=== PATIENT | female | born 1995 | race Caucasian/White ===

== ENCOUNTER 2019-11-14 21:45 | Emergency (ER) | payer BC, SELFPAY ==
[2019-11-14 21:52] VITALS: BP 126/88; PULSE 79; RESP 16; TEMP 36.7; O2SAT 99
--- NOTE | 2019-11-14 22:20 | ED.GENADUL_ITS ---
Discharge Plan Disposition Patient Disposition: HOME Condition: Stable Discharge Details Clinical Impression: Rupture of cyst of right ovary Primary Care Provider: [facility] Provider: Zaynab Haji Home Meds and New Rx's Prescriptions: New oxycodone-acetaminophen [Percocet] 5-325 mg tablet 1 tab PO TID PRN (Reason: pain) 3 Days Qty: 7 RF: 0 ondansetron HCl [Zofran] 4 mg tablet 4 mg PO Q8H PRN (Reason: nausea and vomiting) 3 Days Qty: 7 RF: 0 No Action dextroamphetamine 10 mg Tablet 10 mg PO DAILY RF: 0 Discharge Instructions Instructions: Ovarian Cyst (ED) Additional Instructions: Follow up with primary care provider in 3-5 days. Return to ED sooner if any worsening or concerns. Increase oral fluids. Please take Tylenol or Ibuprofen with food every 4-6 hours as needed for pain and swelling. Take medications as directed for nausea and pain if needed. Return to the ED for any worsening pain, feeling worse at any time. Follow-up [facility] on Sunday as discussed. Referrals: [facility] [OTHER] - Jayla Martinez DO [OSTEOPATHIC DOCTOR] - Medical Decision Making 24-year-old female presents to the ER with right lower quadrant abdominal pain which began tonight she reports this came on suddenly. Associated with nausea no vomiting no diarrhea. She is very tender upon palpation, positive iliopsoas sign, positive obturator sign. She is tender over McBurney's point. She reports her last known menstrual period was 2 weeks ago. Denies any vaginal discharge or bleeding denies any history of abdominal surgeries. She is from [place] and just drove in today. [id number]: Spoke with Dr. Martinez with [facility] who recommends DC home with pain control and follow up with her on Sunday in clinic, barring any unstable labs or patient remaining hemodynamically stable. PROCEDURE INFORMATION: Exam: CT Abdomen And Pelvis With Contrast Exam date and time: 11/14/2019 10:20 PM Age: 24 years old Clinical indication: Abdominal pain; Localized; Right lower quadrant (rlq); Patient HX: Rlq pain xfew hours TECHNIQUE: Imaging protocol: Computed tomography of the abdomen and pelvis with intravenous contrast. Radiation optimization: All CT scans at this facility use at least one of these dose optimization techniques: automated exposure control; mA and/or kV adjustment per patient size (includes targeted exams where dose is matched to clinical indication); or iterative reconstruction. Contrast material: [id number]; Contrast volume: 84 ml; Contrast route: INTRAVENOUS (IV); COMPARISON: No relevant prior studies available. FINDINGS: Liver: 7 mm low-density lesion within the left hepatic lobe. Gallbladder and bile ducts: Normal. No calcified stones. No ductal dilation. Pancreas: Normal. No ductal dilation. Spleen: Normal. No splenomegaly. Adrenals: Normal. No mass. Kidneys and ureters: Normal. No hydronephrosis. Stomach and bowel: Unremarkable. No obstruction. No mucosal thickening. Appendix: No evidence of appendicitis. Intraperitoneal space: High density pelvic free fluid suspicious for hemope ritoneum and raising the possibility of ruptured hemorrhagic ovarian cyst. Vasculature: Unremarkable. No abdominal aortic aneurysm. Lymph nodes: Unremarkable. No enlarged lymph nodes. Bladder: Unremarkable as visualized. Reproductive: 4.4 cm right ovarian cyst suggested. Bones/joints: Unremarkable. No acute fracture. Soft tissues: Unremarkable. IMPRESSION: 1. 4.4 cm right ovarian cyst suggested. 2. High density pelvic free fluid suspicious for hemoperitoneum and raising the possibility of ruptured hemorrhagic ovarian cyst. Discussed CT results with patient who verbalizes understanding. Discussed follow-up care and strict return instructions, verbalized understanding. Patient was given Percocet and Zofran to go home with instructed to follow-up with [facility] on Sunday. HPI General Mode of arrival: ambulatory . Date/Time Provider Initiated Documentation: 11/14/19 21:46 . Limitations to Documentation: no limitations . Information obtained by: patient . HPI Narrative: 24-year-old female presents to the ER with right lower quadrant abdominal pain which began tonight she reports this came on suddenly. Associated with nausea no vomiting no diarrhea. She is very tender upon palpation, positive iliopsoas sign, positive obturator sign. She is tender over McBurney's point. She reports her last known menstrual period was 2 weeks ago. Denies any vaginal discharge or bleeding denies any history of abdominal surgeries. She is from [place] and just drove in today. Related Data Home Medications Medication Instructions Recorded Confirmed dextroamphetamine 10 mg PO DAILY 11/14/19 11/14/19 ondansetron HCl [Zofran] 4 mg PO Q8H PRN 3 Days #7 tab 11/14/19 oxycodone-acetaminophen [Percocet] 1 tab PO TID PRN 3 Days #7 tab 11/14/19 Previous Rx's Medication Instructions Recorded ondansetron HCl [Zofran] 4 mg PO Q8H PRN 3 Days #7 tab 11/14/19 oxycodone-acetaminophen [Percocet] 1 tab PO TID PRN 3 Days #7 tab 11/14/19 Allergies Allergy/AdvReac Type Severity Reaction Status Date / Time No Known Allergies Allergy Unverified 11/14/19 21:56 General Stated Complaint: Abd Prob ANN: 3 Review of Systems Narrative: Constitutional: Negative for weight loss, alert and oriented, well groomed, normal body habitus, appears comfortable. HEENT: Denies trauma, headaches, blurry vision, nasal discharge, sore throat, trouble swallowing. Chest: Denies chest pain, palpitations, irregular rhythm, hypertension. Respiratory: Denies Shortness of breath, cough, hemoptysis. GI: Denies abdominal pain, nausea, vomiting, diarrhea, constipation. : Denies dysuria, hematuria, flank pain, rectal bleeding. Neuro: Denies dizziness, blurry vision, weakness, syncope, headache or facial numbness. Hematologic: Denies easy bruising, intolerance to heat or cold, hair loss. [facility] Social History Smoking/Tobacco Use Status: Current-Occasional Tobacco Type: e-cigarettes Alcohol Intake: current Alcohol Intake frequency: a few times a week Drug use: Occasionally Substance use type: marijuana Do you feel safe at home: Yes Do you feel safe in your relationship?: Yes Exam Narrative Exam Narrative: Constitutional: Alert and oriented x3. Appears stated age. Normal body habitus. Head: Normocephalic, no trauma. Eyes: Pupils PERRLA, Red reflex noted, EOM's intact. Eyelids symmetrical without lesions, discharge, or swelling. ENT: Bilateral TM's WNL, External ear normal to inspection, no mastoid TTP, sw elling, or erythema, Nasal turbinates WNL, no nasal discharge. Normal dentition, Posterior pharynx WNL, no exudate. Chest: RRR, Normal S1, S2, distal pulses intact. Resp: Lungs clear to auscultation bilaterally, no wheezes, rales, or rhonchi. Abdomen: Tender to palpation right lower quadrant. Positive guarding. Positive iliopsoas sign, positive obturator sign. Musculoskeletal: Normal gait, 5/5 strength to all four extremities. Skin: No suspicious rashes or lesions. Capillary refill less than 2 sec. Neurologic: Cranial nerves II-XII intact. Alert and oriented x 3. DTR's intact. Hematologic/Lymphatic: No ecchymosis, no lymphadenopathy. Course Vital Signs Vital signs: Vital Signs Temperature 36.7 C 11/14/19 21:52 Pulse 79 11/14/19 21:52 Respiratory Rate 16 11/14/19 21:52 Blood Pressure 126/88 11/14/19 21:52 Pulse Oximetry 99 11/14/19 21:52 Temperature 36.7 C 11/14/19 21:52 Temperature Source Skin 11/14/19 21:52 Pulse 79 11/14/19 21:52 Respiratory Rate 16 11/14/19 21:52 Respiratory Effort 11/14/19 21:59 Blood Pressure 126/88 11/14/19 21:52 Blood Pressure Position Sitting 11/14/19 21:52 Pulse Oximetry 99 11/14/19 21:52 Oxygen Delivery Method Room Air 11/14/19 21:52 Oxygen Flow Rate 0 11/14/19 21:52
[2019-11-14 22:21] LABS: Bilirubin Negative (Negative); Blood Negative (Negative); Clarity Clear (Clear); Glucose Negative (Negative); Ketones Trace mg/dL (Negative); Leukocyte Esterase Negative (Negative); Nitrite Negative (Negative); Specific Gravity 1.015 (1.005-1.025); Urobilinogen 0.2 EU/dL (Up TO 0.2); pH 6.5 (5-8)
[2019-11-14] MEDS: Ondansetron 4 MG/2 ML VIAL IVP (22:37)
[2019-11-14] MEDS: Normal Saline 1,000 ML 1000 ML IV (22:37)
[2019-11-14] MEDS: Normal Saline Flush 10 ML SYR IVP (22:40)
--- NOTE | 2019-11-14 22:48 | DI.CT_ITS ---
EXAM: CT ABDOMEN PELVIS W CLINICAL HISTORY: RLQ abd pain TECHNIQUE: Imaging Protocol: Axial computed tomography images with coronal and sagittal reformatted images were created and reviewed CONTRAST MATERIAL: Intravenous: Omnipaque 350 Contrast volume:84 mL Oral: No COMPARISON: No exams were available for comparison FINDINGS: ABDOMEN: Lung Bases: Normal where visualized. Liver: Normal density. There is a 0.7 cm hypodense lesion in the left lobe of the liver. It is too s mall for further characterization. Portal, Superior Mesenteric, and Splenic Veins: Unremarkable. Gallbladder and Biliary Tract: No radiodense calculus or dilation. Pancreas: Normal density, no abnormal calcifications or inflammatory process. Spleen: Normal. Adrenals: No masses seen. Kidneys: Normal size, contour and axis. No radiodense stones or obstructive uropathy. No masses seen. Note is made of a left retroaortic renal vein. Abdominal Aorta: Abdominal portion non-dilated. Bowel: No obstruction or bowel wall thickening. No evidence of acute appendicitis. Peritoneal Cavity: Small amount of pelvic, slightly hyperdense, fluid suggesting hemoperitoneum. Lymph Nodes: Within normal limits. Bones: Unremarkable. Soft Tissues: Unremarkable. PELVIS: Bladder: Incompletely distended but grossly unremarkable. Reproductive Organs: 4.3 cm right adnexal cyst which is likely ovarian. Lymph Nodes: Within normal limits. Bones: Within normal limits. IMPRESSION: 1. 4.3 cm right ovarian cyst. 2. High density free pelvic fluid suspicious for hemoperitoneum and raising the possibility of a rupt ured hemorrhagic ovarian cyst. RADIATION DOSE DELIVERED: 566.24mGy.cm Total DLP DATA REPOSITORY: All CT scans at this facility are submitted to the National Radiology Data Registry (NRDR) Dose Index Registry (DIR) with the [employer] (A[employer]). RADIATION OPTIMIZATION: All CT scans at this facility use at least one of these dose optimization te chniques: automated exposure control; mA and/or kV adjustment per patient size (includes targeted exa ms where dose is matched to clinical indication); or iterative reconstruction.
[2019-11-14] MEDS: Normal Saline - Diluent 50 ML VIAL IV (22:50)
[2019-11-14] MEDS: Omnipaque 350 MG/ML 100 ML BTL IJ (22:51)
--- NOTE | 2019-11-14 23:06 | DI.VRAD_ITS ---
Addendum created by Yuval Alves MD on 11/14/2019 11:10:25 PM EDT: THIS REPORT CONTAINS FINDINGS THAT MAY BE CRITICAL TO PATIENT CARE. The findings were discussed with Dr. blackman at 11:10 PM EDT on 11/14/2019. The findings were acknowledged and understood. Initial report created on 11/14/2019 11:05:38 PM EDT: PROCEDURE INFORMATION: Exam: CT Abdomen And Pelvis With Contrast Exam date and time: 11/14/2019 10:20 PM Age: 24 years old Clinical indication: Abdominal pain; Localized; Right lower quadrant (rlq); Patient HX: Rlq pain xfew hours TECHNIQUE: Imaging protocol: Computed tomography of the abdomen and pelvis with intravenous contrast. Radiation optimization: All CT scans at this facility use at least one of these dose optimization techniques: automated exposure control; mA and/or kV adjustment per patient size (includes targeted exams where dose is matched to clinical indication); or iterative reconstruction. Contrast material: [id number]; Contrast volume: 84 ml; Contrast route: INTRAVENOUS (IV); COMPARISON: No relevant prior studies available. FINDINGS: Liver: 7 mm low-density lesion within the left hepatic lobe. Gallbladder and bile ducts: Normal. No calcified stones. No ductal dilation. Pancreas: Normal. No ductal dilation. Spleen: Normal. No splenomegaly. Adrenals: Normal. No mass. Kidneys and ureters: Normal. No hydronephrosis. Stomach and bowel: Unremarkable. No obstruction. No mucosal thickening. Appendix: No evidence of appendicitis. Intraperitoneal space: High density pelvic free fluid suspicious for hemoperitoneum and raising the possibility of ruptured hemorrhagic ovarian cyst. Vasculature: Unremarkable. No abdominal aortic aneurysm. Lymph nodes: Unremarkable. No enlarged lymph nodes. Bladder: Unremarkable as visualized. Reproductive: 4.4 cm right ovarian cyst suggested. Bones/joints: Unremarkable. No acute fracture. Soft tissues: Unremarkable. IMPRESSION: 1. 4.4 cm right ovarian cyst suggested. 2. High density pelvic free fluid suspicious for hemoperitoneum and raising the possibility of ruptured hemorrhagic ovarian cyst. Dictated and Authenticated by: Yuval Alves MD. Ordering:YELENA Worthy MD
[2019-11-14 23:11] LABS: ALT 18 U/L (14-59); AST 10 U/L (15-37); Albumin 4.2 g/dL (3.4-5.0); Alkaline Phosphatase 67 U/L (46-116); Anion Gap 8.4 mmol/L (3-11); BUN 9 mg/dL (7-18); Bilirubin, Total 0.9 mg/dL (0.2-1.0); CO2 27.6 mmol/L (21.0-32.0); CREATININE 1.02 mg/dL (0.55-1.02); Calcium 9.6 mg/dL (8.5-10.1); Chloride 103 mmol/L (98-107); Glucose 105 mg/dL (74-106); Potassium 3.7 mmol/L (3.5-5.1); Sodium 139 mmol/L (136-145); Total Protein 8.3 g/dL (6.4-8.2)
--- NOTE | 2019-11-14 23:18 | NUR.NOTE ---
referral faxed to [facility] for f/u care regarding today's visit Nursing Note:
[2019-11-14 23:25] LABS: Abs Immature Grans 0.07 10^3/uL (0.0-0.06); Absolute Eosinophil Count 0.08 10^3/uL (0.0-0.7); Absolute Monocyte Count 1.19 10^3/uL (0.1-0.8); Absolute Neutrophil Count 9.82 10^3/uL (1.2-6.7); Basophils % 0.4; Eosinophils % 0.6; HCT 41.8 % (36.0-46.0); HGB 13.9 g/dL (11.2-15.7); Immature Grans % 0.5; Lymphocytes % 19.6; MCH 30.5 pg (27.0-33.0); MCHC 33.3 % (32.0-36.0); MCV 91.9 fL (80-95); MPV 11.4 fL (8.0-11.0); Monocytes % 8.5; Neutrophils % 70.4; Nucleated RBC 0 %; Platelet Count 262 10^3/uL (130-400); RBC 4.55 10^6/uL (3.93-5.22); RDW 12.5 % (11.7-14.6); RDW-SD 41.5 fL; WBC 13.95 10^3/uL (4.4-10.8)
[2019-11-14 23:26] LABS: Absolute Basophil Count 0.06 10^3/uL (0.0-0.2); Absolute Lymphocyte Count 2.73 10^3/uL (1.2-3.4)
[2019-11-14 23:41] VITALS: BP 126/88; PULSE 79; RESP 16; TEMP 36.7; O2SAT 99
== END 2019-11-14 23:55 | disposition home or self-care (01) ==
PROVIDERS: Emergency Provider Registered Nurse Emergency
DX: N83.291 Other ovarian cyst, right side (principal); R11.0 Nausea
CPT/HCPCS: 36415; 80053; 81025; 96361; 96374; 96375; 99285; 74177; 81003; 85025; 99284; J2405; J3490